=== PATIENT | male | born 1945 | race Hispanic/Latino ===

== ENCOUNTER 2016-08-17 19:25 | Emergency (ER) | payer OTHER, SELFPAY ==
[2016-08-17 20:51] LABS: Basophils % (Auto) 0.5 % (0.0-1.8); Hematocrit 45.4 % (35.5-45.6); Hemoglobin 14.8 gm/dl (11.8-15.2); Mean Corpuscular HGB Conc 33 % (32-34); Mean Corpuscular Hemoglobin 28 pg (28-32); Mean Corpuscular Volume 85 fl (84-94); Platelet Count 218 K/mm3 (140-440); Red Blood Count 5.35 M/mm3 (3.65-5.03); Red Cell Distribution Width 17.5 % (13.2-15.2); White Blood Count 10.2 K/mm3 (4.5-11.0)
[2016-08-17 20:55] LABS: Anion Gap 22 mmol/L; BUN/Creatinine Ratio 17.77; Blood Urea Nitrogen 16 mg/dL (9-20); Calcium 8.9 mg/dL (8.4-10.2); Carbon Dioxide 23 mmol/L (22-30); Chloride 93.5 mmol/L (98-107); Glucose 122 mg/dL (75-100); Potassium 3.4 mmol/L (3.6-5.0); Sodium 135 mmol/L (137-145)
[2016-08-17 20:59] VITALS: BP 168/94
[2016-08-17 20:59] LABS: INR 1.09 (0.87-1.13); Partial Thromboplastin Time 28.1 Sec. (24.2-36.6)
[2016-08-17 21:19] LABS: Bacteria,Urine 2+ /HPF (Negative); Mucus,Urine FEW /HPF
[2016-08-17 21:21] LABS: Bilirubin,Urine NEG (Negative); Blood,Urine LG (Negative); Ketones,Urine NEG (Negative); Leukocyte Esterase,Urine SM (Negative); Nitrite,Urine NEG (Negative); Urobilinogen,Urine < 2.0 mg/dL (<2.0)
[2016-08-17 21:28] LABS: RBC,Urine > 182.0 /HPF (0.0-6.0)
--- NOTE | 2016-08-18 09:53 | XRay Report ---
ROUTINE CHEST, TWO VIEWS: HISTORY: Shortness of breath. The trachea, heart, mediastinal contour, lung apple and bony thorax are unremarkable. IMPRESSION: Unremarkable chest x-ray.
== END 2016-08-17 23:21 | disposition left against medical advice (07) ==
LOC: ED 19:25
DX: R06.09 Other forms of dyspnea (principal); Z53.21 Procedure and treatment not carried out due to patient leaving prior to being seen by health care provider
CPT/HCPCS: 36415; 71020; 80048; 81001; 84484; 85025; 85610; 85730; 93005; 93010

== ENCOUNTER 2016-11-23 16:38 | Emergency (ER) | payer OTHER ==
[2016-11-23 16:47] LABS: Basophils % (Auto) 1.1 % (0.0-1.8); Eosinophils % (Auto) 1.1 % (0.0-4.3); Hematocrit 44.8 % (35.5-45.6); Hemoglobin 14.7 gm/dl (11.8-15.2); Mean Corpuscular HGB Conc 33 % (32-34); Mean Corpuscular Hemoglobin 28 pg (28-32); Mean Corpuscular Volume 86 fl (84-94); Platelet Count 242 K/mm3 (140-440); Red Cell Distribution Width 16.2 % (13.2-15.2); White Blood Count 9.8 K/mm3 (4.5-11.0)
--- NOTE | 2016-11-23 16:53 | Emergency Department Report ---
ED General Adult HPI - General Stated complaint: STROKE Time Seen by Provider: 11/23/16 16:51 - Related Data Home Medications Medication Instructions Recorded Confirmed Last Taken Clopidogrel Bisulfate [Plavix] 75 mg PO DAILY 02/22/16 02/22/16 Unknown Previous Rx's Medication Instructions Recorded Last Taken Type Acetaminophen [Acetaminophen TAB] 650 mg PO Q4H PRN #60 tablet 04/12/15 Unknown Rx AtorvaSTATin [Lipitor] 20 mg PO QHS #30 tablet 04/12/15 Unknown Rx Metoprolol [Lopressor TAB] 100 mg PO TID #90 tablet 04/12/15 02/21/16 Rx Allergies Allergy/AdvReac Type Severity Reaction Status Date / Time No Known Allergies Allergy Verified 04/03/15 23:03 ED Review of Systems ROS: Stated complaint: STROKE Other details as noted in HPI ED Past Medical Hx - Past Medical History Hx Hypertension: Yes Hx CVA: Yes (left right side weakness deficit) Hx Heart Attack/AMI: Yes Hx Diabetes: Yes Hx Asthma: No Hx COPD: No Additional medical history: "heart problems". parkinsons, Nosebleeds - Surgical History Hx Coronary Stent: Yes Additional Surgical History: hernia repair - Social History Smoking Status: Former Smoker Substance Use Type: None - Medications Home Medications: Home Medications Medication Instructions Recorded Confirmed Last Taken Type Acetaminophen [Acetaminophen TAB] 650 mg PO Q4H PRN #60 tablet 04/12/15 Unknown Rx AtorvaSTATin [Lipitor] 20 mg PO QHS #30 tablet 04/12/15 02/22/16 Unknown Rx Metoprolol [Lopressor TAB] 100 mg PO TID #90 tablet 04/12/15 02/22/16 02/21/16 Rx Clopidogrel Bisulfate [Plavix] 75 mg PO DAILY 02/22/16 02/22/16 Unknown History ED Medical Decision Making - Lab Data Result diagrams: 11/23/16 16:35 Critical care attestation.: If time is entered above; I have spent that time in minutes in the direct care of this critically ill patient, excluding procedure time. ED Disposition Condition: Stable Referrals: PRIMARY CARE,MD [Primary Care Provider] - 3-5 Days
[2016-11-23] MEDS ORDERED: NORMODYNE IV ONE ×3 (16:59→19:33)
[2016-11-23] MEDS ORDERED: CARDENE 50 MG in NACL 0.9% 250ML 230 ML IV SCH (17:00)
--- NOTE | 2016-11-23 17:02 | Emergency Department Report ---
ED Neuro Deficit HPI - General Chief Complaint: Neuro Symptoms/Deficit Stated Complaint: STROKE Time Seen by Provider: 11/23/16 16:51 Source: EMS (ems notes not available at time of chart dictation), RN notes reviewed, old records reviewed Limitations: Altered Mental Status, Physical Limitation - History of Present Illness Initial Comments: This is a 71-year-old male, patient has a past medical history of ischemic stroke, high cholesterol, diabetes, heart disease with stent, atrial fibrillation, as per medical records in 2016, is supposed to be on Coumadin. Patient is brought to the hospital by EMS as a possible code stroke. As per verbal report from EMS, patient was outside on a porch, and slumped over , and was caught by passers by. EMS verbally reported that the patient did not hit his head. EMS reports that witnesses indicated the patient was in normal health prior to the fall, and that the fall occurred 30 minutes prior to EMS arrival. EMS reports appropriate fingerstick, and reports left-sided weakness. As per review of old documentation, upon discharge March 2015, patient admitted for stroke, weakness and slurred speech, weakness was on the right- hand side, and patient had 4 out of 5 muscle strength in the right upper and right lower extremity, MRI demonstrated ischemia in the left perea radiata. The patient is able to follow some commands but not answer all questions. The patient is unable to indicate if he is taking any systemic anticoagulation. The patient is dysarthric, and is unable to elaborate on exacerbating or relieving factors. No family is available at this time for corroborating information, no additional information is available at this time secondary to lack of available family members. I attempted to contact the phone numbers listed in the patient's demographic information, in an attempt to reach family and/or brother, however nobody answered the phone. Patient found to be markedly hypertensive, given multiple doses of labetalol, Cardene drip is currently pending, noncontrast CT scan of the brain is negative for hemorrhage. Case is discussed with the stroke neurologist, Dr. Placido Gregg, who is going to apply with the patient. However, since we cannot establish an exact onset of symptoms secondary to lack of direct eyewitnesses, we do not know if the patient is taking systemic anticoagulation, and he is markedly hypertensive, family, patient has multiple conscious medications to thrombolysis. Location: speech, left face, left arm Presenting Symptoms: Present: Weak/Paralyzed One Side, Unable to Speak Clearly, Altered Mental Status Place: home Severity: moderate Improves With: none Worsens With: none On Anticoagulants: Yes (ems states plavix, unknown if others) Context: sudden onset Associated Symptoms: other (per hpi) - Related Data Home Medications: Home Medications Medication Instructions Recorded Confirmed Last Taken Clopidogrel Bisulfate [Plavix] 75 mg PO DAILY 02/22/16 02/22/16 Unknown Previous Rx's Medication Instructions Recorded Last Taken Type Acetaminophen [Acetaminophen TAB] 650 mg PO Q4H PRN #60 tablet 04/12/15 Unknown Rx AtorvaSTATin [Lipitor] 20 mg PO QHS #30 tablet 04/12/15 Unknown Rx Metoprolol [Lopressor TAB] 100 mg PO TID #90 tablet 04/12/15 02/21/16 Rx Allergies/Adverse Reactions: Allergies Allergy/AdvReac Type Severity Reaction Status Date / Time No Known Allergies Allergy Unverified 11/23/16 23:56 ED Review of Systems ROS: Stated complaint: STROKE Other details as noted in HPI Comment: Unobtainable due to pts medical conditions ED Past Medical Hx - Past Medical History Hx Hypertension: Yes Hx CVA: Yes (left right side weakness deficit) Hx Heart Attack/AMI: Yes Hx Diabetes: Yes Hx Asthma: No Hx COPD: No Additional medical history: "heart problems". parkinsons, Nosebleeds - Surgical History Hx Coronary Stent: Yes Additional Surgical History: hernia repair - Social History Smoking Status: Former Smoker Substance Use Type: None - Medications Home Medications: Home Medications Medication Instructions Recorded Confirmed Last Taken Type Acetaminophen [Acetaminophen TAB] 650 mg PO Q4H PRN #60 tablet 04/12/15 Unknown Rx AtorvaSTATin [Lipitor] 20 mg PO QHS #30 tablet 04/12/15 02/22/16 Unknown Rx Metoprolol [Lopressor TAB] 100 mg PO TID #90 tablet 04/12/15 02/22/16 02/21/16 Rx Clopidogrel Bisulfate [Plavix] 75 mg PO DAILY 02/22/16 02/22/16 Unknown History ED Neuro Physical Exam - General Limitations: Altered Mental Status, Physical Limitation General appearance: alert, anxious, in distress - Head Head exam: Present: atraumatic, normocephalic - Eye Eye exam: Present: normal appearance, PERRL, EOMI. Absent: nystagmus - ENT ENT exam: Present: normal exam, normal orophraynx, mucous membranes moist, normal external ear exam - Neck Neck exam: Present: normal inspection, full ROM. Absent: tenderness, meningismus - Respiratory Respiratory exam: Present: normal lung sounds bilaterally. Absent: respiratory distress, wheezes, rales, rhonchi, stridor, chest wall tenderness, accessory muscle use, decreased breath sounds, prolonged expiratory - Cardiovascular Cardiovascular Exam: Present: tachycardia, irregular rhythm, normal heart sounds. Absent: systolic murmur, diastolic murmur, rubs, gallop - GI/Abdominal GI/Abdominal exam: Present: soft, normal bowel sounds. Absent: distended, tenderness, guarding, rebound, rigid, pulsatile mass - Rectal Rectal exam: Present: deferred - exam: Present: normal inspection - Extremities Exam Extremities exam: Present: normal inspection, normal capillary refill. Absent: calf tenderness - Back Exam Back exam: Present: normal inspection. Absent: tenderness, CVA tenderness (R), paraspinal tenderness, vertebral tenderness - Neurological Exam Neurological exam: Present: altered, motor sensory deficit - NIHSS Assessment Interval: Baseline 1a. Level of Consciousness: alert 1b. LOC Questions: answers no questions correctly 1c. LOC Commands: performs tasks correctly 2. Best Gaze: normal 3. Visual: no visual loss (unable to assess) 4. Facial Palsy: normal symmetrical movement 5b. Motor Arm Right: no drift 5a. Motor Arm Left: no movement 6a. Motor Leg Left: no movement 6b. Motor Leg Right: no drift 7. Limb Ataxia: amputation 9. Best Language: mild/moderate aphasia 10. Dysarthria: severe dysarthria 11. Extinction/Inattention: visual/tactile inattention - Psychiatric Psychiatric exam: Present: anxious - Skin Skin exam: Present: warm, dry, intact, normal color. Absent: rash ED Course Vital Signs 11/23/16 11/23/16 11/23/16 16:38 16:50 17:06 Temperature 98.2 F Pulse Rate 90 85 90 Respiratory 18 18 18 Rate Blood Pressure 195/96 Blood Pressure 229/119 195/96 [Right] O2 Sat by Pulse 95 96 95 Oximetry 11/23/16 11/23/16 11/23/16 17:35 17:44 18:09 Temperature Pulse Rate 97 H 96 H Respiratory 22 20 Rate Blood Pressure Blood Pressure 198/120 191/109 175/82 [Right] O2 Sat by Pulse 96 96 Oximetry 11/23/16 11/23/16 11/23/16 18:50 19:20 19:40 Temperature Pulse Rate 93 H 91 H 96 H Respiratory 22 22 94 H Rate Blood Pressure Blood Pressure 169/88 164/76 162/80 [Right] O2 Sat by Pulse 93 95 Oximetry 11/23/16 11/23/16 11/23/16 20:30 20:59 21:00 Temperature Pulse Rate 83 99 H 97 H Respiratory 22 20 20 Rate Blood Pressure Blood Pressure 161/76 161/73 153/78 [Right] O2 Sat by Pulse 92 94 92 Oximetry 11/23/16 11/23/16 11/23/16 21:50 22:31 23:27 Temperature Pulse Rate 90 95 H 97 H Respiratory 20 20 20 Rate Blood Pressure Blood Pressure 177/77 185/83 180/83 [Right] O2 Sat by Pulse 88 95 98 Oximetry 11/24/16 11/24/16 11/24/16 00:46 01:20 01:25 Temperature Pulse Rate 93 H 93 H 92 H Respiratory 18 16 Rate Blood Pressure 203/93 Blood Pressure 207/93 194/94 [Right] O2 Sat by Pulse 99 97 Oximetry - Reevaluation(s) Reevaluation #1: 11/23/16 17:36 Still hypertensive, nicardipine drip is initiated, patient seen and evaluated by stroke neurology. They are in agreement with current plan. Angiogram is pending. Patient still dysarthric, no family is available for consent, therefore I will administrately consent the patient for CT scan with IV contrast for angiography, as he may benefit from emergent thrombectomy. Reevaluation #2: 11/23/16 21:00 CT scan negative for large clots. Case discussed with stroke neurology at [facility] , Dr Zhang, who declined to accept the patient secondary to bed availability. Patient's examination has remained unchanged, there is persistent left-sided hemiparesis, he is suctioning his airway, and his blood pressure has been better controlled. We will discuss with [facility] Reevaluation #3: 11/23/16 22:03 Patient reevaluated multiple times by myself. His Cardene drip has been discontinued, and his blood pressure is currently in the 170s. Urinalysis suggests urinary tract infection, and antibiotics have been ordered. On room air, the patient saturates 87/88%. A nasal cannula he is 92/93%. He is still awake, and able to suction himself, having some difficulty with secretions, and he has a diminished gag reflex. Nevertheless, at this point in time, he is awake and following commands, and oblique requires emergent intubation at this time. This hospital does not have neurology fellow for consultation, and given his clinical exam and findings, I believe the patient will be best served at a facility that has neurology available for consultation. Case has been discussed with the neurologic c software engineer at [facility], Dr. Sandra Esposito , who graciously accepted the patient is a transfer. This plan of care was discussed exhaustively and extensively with the patient's family. Reevaluation #4: 11/24/16 00:35 Patient still awaiting transport. Blood pressure now 211/105 and heart rate is 105. 20 mg of labetalol is ordered. Patient awake, continued to protect airway. - EJ/Peripheral Line Neck R Time Out Performed: Yes Indications: multiple IV sites needed Skin Cleansed in Sterile Fashion: Yes Size: 18 Dressing Placed: Tegaderm Patient Tolerated Procedure: well - Lab Data Result diagrams: 11/23/16 16:35 11/23/16 16:35 Lab Results 11/23/16 11/23/16 11/23/16 Range/Units 16:35 16:35 16:35 WBC 9.8 (4.5-11.0) K/mm3 RBC 5.20 H (3.65-5.03) M/mm3 Hgb 14.7 (11.8-15.2) gm/dl Hct 44.8 (35.5-45.6) % MCV 86 (84-94) fl MCH 28 (28-32) pg MCHC 33 (32-34) % RDW 16.2 H (13.2-15.2) % Plt Count 242 (140-440) K/mm3 Lymph % (Auto) 29.2 (13.4-35.0) % [place] % (Auto) 10.7 H (0.0-7.3) % Eos % (Auto) 1.1 (0.0-4.3) % Baso % (Auto) 1.1 (0.0-1.8) % Lymph # 2.9 (1.2-5.4) K/mm3 Garvin # 1.0 H (0.0-0.8) K/mm3 Eos # 0.1 (0.0-0.4) K/mm3 Baso # 0.1 (0.0-0.1) K/mm3 Seg Neutrophils % 57.9 (40.0-70.0) % Seg Neutrophils # 5.7 (1.8-7.7) K/mm3 PT 12.7 (12.2-14.9) Sec. INR 0.91 (0.87-1.13) APTT 26.3 (24.2-36.6) Sec. Thrombin Time (15.1-19.6) Sec. Sodium 138 (137-145) mmol/L Potassium 4.5 (3.6-5.0) mmol/L Chloride 100.0 (98-107) mmol/L Carbon Dioxide 24 (22-30) mmol/L Anion Gap 19 mmol/L BUN 21 H (9-20) mg/dL Creatinine 1.0 (0.8-1.5) mg/dL Estimated GFR > 60 ml/min BUN/Creatinine Ratio 21.00 % Glucose 126 H (75-100) mg/dL Calcium 9.7 (8.4-10.2) mg/dL Troponin T < 0.010 (0.00-0.029) ng/mL Urine Color (Yellow) Urine Turbidity (Clear) Urine pH (5.0-7.0) Ur Specific [place] (1.003-1.030) Urine Protein (Negative) mg/dL Urine Glucose (UA) (Negative) mg/dL Urine Ketones (Negative) mg/dL Urine Blood (Negative) Urine Nitrite (Negative) Urine Bilirubin (Negative) Urine Urobilinogen (<2.0) mg/dL Ur Leukocyte Esterase (Negative) Urine WBC (Auto) (0.0-6.0) /HPF Urine RBC (Auto) (0.0-6.0) /HPF Urine Bacteria (Auto) (Negative) /HPF Urine Mucus /HPF 11/23/16 11/23/16 Range/Units 16:35 20:58 WBC (4.5-11.0) K/mm3 RBC (3.65-5.03) M/mm3 Hgb (11.8-15.2) gm/dl Hct (35.5-45.6) % MCV (84-94) fl MCH (28-32) pg MCHC (32-34) % RDW (13.2-15.2) % Plt Count (140-440) K/mm3 Lymph % (Auto) (13.4-35.0) % [place]vin % (Auto) (0.0-7.3) % Eos % (Auto) (0.0-4.3) % Baso % (Auto) (0.0-1.8) % Lymph # (1.2-5.4) K/mm3 [place]vin # (0.0-0.8) K/mm3 Eos # (0.0-0.4) K/mm3 Baso # (0.0-0.1) K/mm3 Seg Neutrophils % (40.0-70.0) % Seg Neutrophils # (1.8-7.7) K/mm3 PT (12.2-14.9) Sec. INR (0.87-1.13) APTT (24.2-36.6) Sec. Thrombin Time 15.2 (15.1-19.6) Sec. Sodium (137-145) mmol/L Potassium (3.6-5.0) mmol/L Chloride (98-107) mmol/L Carbon Dioxide (22-30) mmol/L Anion Gap mmol/L BUN (9-20) mg/dL Creatinine (0.8-1.5) mg/dL Estimated GFR ml/min BUN/Creatinine Ratio % Glucose (75-100) mg/dL Calcium (8.4-10.2) mg/dL Troponin T (0.00-0.029) ng/mL Urine Color Yellow (Yellow) Urine Turbidity Slightly-cloudy (Clear) Urine pH 6.0 (5.0-7.0) Ur Specific [place] 1.016 (1.003-1.030) Urine Protein 30 mg/dl (Negative) mg/dL Urine Glucose (UA) 150 (Negative) mg/dL Urine Ketones Neg (Negative) mg/dL Urine Blood Lg (Negative) Urine Nitrite Neg (Negative) Urine Bilirubin Neg (Negative) Urine Urobilinogen 2.0 (<2.0) mg/dL Ur Leukocyte Esterase Mod (Negative) Urine WBC (Auto) 180.0 H (0.0-6.0) /HPF Urine RBC (Auto) > 182.0 (0.0-6.0) /HPF Urine Bacteria (Auto) 2+ (Negative) /HPF Urine Mucus Few /HPF - EKG Data -: EKG Interpreted by 11/23/16 17:29 Atrial fibrillation, 100 minute, normal axis, motion artifact, QTC 452 ms, limited by motion artifact. - Radiology Data Radiology results: report reviewed, image reviewed Noncontrast CT scan of brain negative for acute findings, chronic findings are noted. - Core Measures Measure Exclusions: not indicated - Thrombolytic Inclusion/Exclusion Thrombolytic Exclusion Criteria: Onset of Symptoms Unknown (no direct eye witnesses) Thrombolytic Inclusion Criteria: NIH Stroke Scale Deficit, Negative CT Scan for ICH, Age 18 or Older Thrombolytic Contraindications: Systolic Pressure > 185 Critical care attestation.: If time is entered above; I have spent that time in minutes in the direct care of this critically ill patient, excluding procedure time. ED Disposition Clinical Impression: Slurred speech, Atrial fibrillation and flutter, Left-sided weakness Disposition: [id number] IP Is pt being admited?: No Condition: Good Referrals: PRIMARY CARE, [Primary Care Provider] - 3-5 Days
[2016-11-23 17:03] LABS: INR 0.91 (0.87-1.13)
[2016-11-23 17:04] LABS: Partial Thromboplastin Time 26.3 Sec. (24.2-36.6)
[2016-11-23 17:09] LABS: Anion Gap 19 mmol/L; Blood Urea Nitrogen 21 mg/dL (9-20); Calcium 9.7 mg/dL (8.4-10.2); Carbon Dioxide 24 mmol/L (22-30); Glucose 126 mg/dL (75-100); Potassium 4.5 mmol/L (3.6-5.0); Sodium 138 mmol/L (137-145)
--- NOTE | 2016-11-23 17:17 | Cat Scan Report ---
FINAL REPORT PROCEDURE: CT HEAD/BRAIN WO CON TECHNIQUE: Computerized tomography of the head was performed without contrast material. HISTORY: neuro deficits \T\lt; 6hrs or sx present upon awakening COMPARISON: Noncontrast head CT 04/03/2015 FINDINGS: The study is partially compromised due to motion. There is however no intra or extra-axial hemorrhage seen. Again seen are old bilateral thalamic and basal ganglia lacunar infarcts as well as infarct within the left anterior perea radiata/periventricular white matter. New since the prior examination but old in age is a right posterior frontal/parietal lobe infarct. Again seen are extensive deep white matter microvascular ischemic changes worse than involutional changes. There is no mass effect or hydrocephalus. The skull base and calvarium are intact. The partially visualized paranasal sinuses, mastoid air cells, and middle ears ears are clear. Right to left nasal septal deviation and left-sided nasal septal spur is present. IMPRESSION: Involutional changes, small vessel disease, and remote infarctions. No intracranial hemorrhage. If desired, subtle acute bland ischemia may be most sensitively excluded with MRI with diffusion. This case was discussed with Dr. Olivarez of at 5:04 p.m. [place] standard time, 11/23/2016.
[2016-11-23] MEDS ORDERED: NACL ONE (17:45)
--- NOTE | 2016-11-23 19:30 | Cat Scan Report ---
FINAL REPORT PROCEDURE: CT ANGIO HEAD TECHNIQUE: Computerized tomographic angiography of the head was performed after the IV injection of 130 cc Omnipaque 350 iodinated nonionic contrast including image processing. The image data was postprocessed using 2-dimensional multiplanar reformatted (MPR) and 3-dimensional (MIP and/or volume rendered) techniques. HISTORY: cva COMPARISON: Head CT from same day FINDINGS: There is partial opacification of the right mastoid air cells. Middle ears appear clear. Paranasal sinuses appear clear. Old ischemic changes are suspected in the brain. Vertebral arteries appear codominant. Small posterior communicating arteries are present. Anterior communicating artery is present. Partially calcified plaque is seen in the distal ICAs. In the the left ICA just proximal to the cavernous sinus, there is suspicion for a tiny aneurysm projected posteriorly seen on image 86 of series 102. It measures approximately 1 millimeter in size. Similarly, near this level on image 89 of series 102, there is a suspected aneurysm of the distal right ICA projected posteriorly measuring 1 millimeter. The calcified plaque in the distal ICAs causes no significant stenosis. 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 Partially calcified plaque is seen in the distal ICAs without evidence of significant stenosis.
--- NOTE | 2016-11-23 19:38 | Cat Scan Report ---
FINAL REPORT PROCEDURE: CT ANGIO NECK TECHNIQUE: Computerized tomographic angiography of the neck was performed after the IV injection of iodinated nonionic contrast including image processing. The image data was postprocessed using 2-dimensional multiplanar reformatted (MPR) and 3-dimensional (MIP and/or volume rendered) techniques. HISTORY: cva COMPARISON: No prior studies are available for comparison. Note: Assessment of carotid artery stenosis is based on measurement of the distal internal carotid artery diameter as the denominator for stenosis calculations and the [place] Symptomatic Carotid Endarterectomy Trial (NASCET) stenosis criteria . CPT 3100F FINDINGS: Heterogeneity is seen of the thyroid gland. Further evaluation with ultrasound may be useful. Vertebral arteries appear codominant. Small focus of calcified plaque is seen in the mid right vertebral artery causing no significant stenosis. Mild noncalcified plaque is seen in the distal right CCA causing less than 10 percent stenosis. This extends into the carotid bifurcation and proximal right ICA. There is likely ulcerated plaque in the proximal right ICA. Mild noncalcified plaque is seen in the mid to distal left CCA causing up to 20 percent stenosis. Partially calcified plaque is seen in the proximal left ICA causing 15 percent stenosis. Bony changes likely cause areas of significant central canal and neural foraminal stenosis in the cervical spine. There is likely cord contact and possible cord compression from uncovertebral osteophytes at C5-6. IMPRESSION: Plaque in the CCAs and ICAs only causes mild stenosis. However, the plaque in the proximal right ICA appears ulcerated. Heterogeneous thyroid gland is seen and correlation with ultrasound is recommended.
[2016-11-23 21:45] LABS: Bacteria,Urine 2+ /HPF (Negative); Bilirubin,Urine NEG (Negative); Blood,Urine LG (Negative); Ketones,Urine NEG (Negative); Leukocyte Esterase,Urine MOD (Negative); Mucus,Urine FEW /HPF; Nitrite,Urine NEG (Negative)
[2016-11-23 21:46] LABS: RBC,Urine > 182.0 /HPF (0.0-6.0)
[2016-11-23] MEDS ORDERED: ASPIRIN PR ONE (22:02)
[2016-11-23] MEDS ORDERED: ROCEPHIN/NS 1 GM/50 ML 1 GM/50 ML BAG IV ONE (22:02)
[2016-11-24] MEDS ORDERED: NORMODYNE IV ONE (00:34)
[2016-11-24 03:17] VITALS: BP 194/94
== END 2016-11-24 01:25 | disposition short-term general hospital (02) ==
LOC: ED 16:38
DX: I48.91 Unspecified atrial fibrillation (principal); M62.81 Muscle weakness (generalized); R47.81 Slurred speech; I10 Essential (primary) hypertension; I50.9 Heart failure, unspecified
CPT/HCPCS: 36415; 36569; 51702; 70450; 70496; 70498; 80048; 81001; 84484; 85025; 85610; 85670; 85730; 87076; 87086; 87186; 93005; 93010; 96366; 96367; 96372; 96374; 99285; J0696; J7050; Q9967